=== PATIENT | female | born 1985 | race Caucasian/White ===

== ENCOUNTER 2018-12-30 15:14 | Emergency (ER) | payer MEDICAID ==
[~2018-12-30] VITALS: Ht 170.2 cm; Wt 54.5 kg
[2018-12-30 15:24] VITALS: BP 113/65; Ht 170.2 cm; Wt 54.5 kg
[2018-12-30] MEDS ORDERED: SYNTHROID125 MCG PO (15:27)
[2018-12-30] MEDS ORDERED: ZOLOFT50 MG PO (15:27)
[2018-12-30 15:55] LABS: BASOPHILS 0.4 % (0-2); EOSINOPHILS 1.8 % (0-7); HEMATOCRIT 41.5 % (36.0-48.0); HEMOGLOBIN 14.9 g/dL (12-16); LYMPHOCYTES 37.5 % (15-50); MCH 30.3 pg (26.0-34.0); MCHC 35.9 g/dL (31.0-37.0); MCV 84.5 fL (80.0-100.0); MEAN PLATELET VOLUME 9.8 fL (7.4-10.4); MONOCYTES 6.9 % (2-11); NEUTROPHILS 53.4 % (40-80); PLATELET COUNT 162 10x3/uL (130-400); RBC 4.91 10x6/uL (4.00-5.40); RDW 12.3 % (11.5-14.5); WBC 4.5 10x3/uL (4.8-10.8)
[2018-12-30 16:14] LABS: ALBUMIN 3.9 g/dL (3.4-5.0); ALKALINE PHOSPHATASE 89 U/L (46-116); ALT (SGPT) 30 U/L (10-68); BILIRUBIN - TOTAL 0.39 mg/dL (0.2-1.3); CALC OSMOLALITY 282 mosm/kg (275-300); CARBON DIOXIDE 23.4 mmol/L (21.0-32.0); CHLORIDE - SERUM 108 mmol/L (98-107); CREATININE - SERUM 0.8 mg/dL (0.6-1.3); GLUCOSE 82 mg/dL (74-106); POTASSIUM - SERUM 3.9 mmol/L (3.5-5.1); PROTEIN - SERUM 7.6 g/dL (6.4-8.2); SODIUM 143 mmol/L (136-145); UREA NITROGEN 11 mg/dL (7-18); eGFR NON AFRICAN AMERICAN 89 mL/min (90-120)
[2018-12-30 16:19] LABS: HCG SERUM NEGATIVE (NEGATIVE)
[2018-12-30 16:23] LABS: MAGNESIUM - SERUM 2.2 mg/dL (1.8-2.4); THYROID STIMULATING HORMONE 0.59 uIU/mL (0.36-3.74)
[2018-12-30 17:04] LABS: APPEARANCE CLEAR (CLEAR); BILIRUBIN NEGATIVE (NEGATIVE); COLOR YELLOW (YELLOW); GLUCOSE NEGATIVE (NEGATIVE); KETONE NEGATIVE (NEGATIVE); NITRITE NEGATIVE (NEGATIVE); PROTEIN NEGATIVE (NEGATIVE); UROBILINOGEN NORMAL (NORMAL)
[2018-12-30 17:05] LABS: BACTERIA MANY /hpf (NONE SEEN); EPITHELIAL CELLS OCC /hpf (0-5); RED CELLS - URINE OCC /hpf (0-5); WHITE CELLS - URINE 0-5 /hpf (0-5)
[2018-12-30 17:13] LABS: UDS - AMPHET NEGATIVE QUAL (NEGATIVE); UDS - BARB NEGATIVE QUAL (NEGATIVE); UDS - BENZO NEGATIVE QUAL (NEGATIVE); UDS - COCAINE NEGATIVE QUAL (NEGATIVE); UDS - OPIATE NEGATIVE QUAL (NEGATIVE); UDS - PCP NEGATIVE QUAL (NEGATIVE); UDS - THC NEGATIVE QUAL (NEGATIVE)
--- NOTE | 2018-12-31 05:27 | NUR ---
DR JACKMAN NOTIFIEDAND REVIEWED PT's BEHAVIOR AND ASSESSMENT RESULTS. PT IS A LOW RISK PER DR JACKMAN. DR JACKMAN STATED TO GIVE RESOURCES TO PT AT TIME OF DISCHARGE. NO FURTHER ORDERS AT THIS TIME. RESOURCES REVIEWED WITH PT AND SHE VERBALIZED UNDERSTANDING.
== END 2018-12-30 17:30 | disposition home or self-care (01) ==
LOC: D.ER 15:14
PROVIDERS: Emergency Medicine
DX: F10.129 Alcohol abuse with intoxication, unspecified (principal); F32.9 Major depressive disorder, single episode, unspecified; Z04.1 Encounter for examination and observation following transport accident